=== PATIENT | male | born 1995 | race Hispanic/Latino ===

== ENCOUNTER 2018-11-27 14:38 | Emergency (ER) | payer OTHER ==
[~2018-11-27] VITALS: Ht 177.8 cm; Wt 97.8 kg
[2018-11-27 17:41] VITALS: BP 154/89
--- NOTE | 2018-11-27 18:30 | REPVR ---
PROCEDURE INFORMATION: Exam: US Left Breast Limited Exam date and time: 11/27/2018 5:11 PM Clinical history: 23 years old, male; Pain; Other: Swelling /redness; Prior surgery; Surgery date: Post-operative (0-2 days); Surgery type: Incision at lump area to be removed drained; Additional info: Tender swelling R/O abscess/hematoma , oked wAnkit Sarmiento to order TECHNIQUE: Imaging protocol: Limited ultrasound of Left breast with image documentation, including axilla when performed. COMPARISON: No relevant prior studies available. FINDINGS: Targeted ultrasound was performed of the left chest in the area of incision. Curvilinear echogenic structure noted approximately 1.6 cm below the skin surface is noted. Distal shadowing is present related to the echogenic structure which may represent sutures or a drain. The shadowing precludes delineation of the soft tissues posteriorly. No fluid or architectural distortion is noted within the surrounding soft tissues. No areas of abnormal vascularity are seen IMPRESSION: Curvilinear echogenic structure within the chest wall at the area of tenderness and edema. Distal shadowing associated with this structure precludes delineation of the posterior soft tissues. Focal abscess/fluid collection not excluded. No abnormality noted in the surrounding soft tissues. Electronically signed by: Argelia Escalante On 11/27/2018 18:29:46 PM
== END 2018-11-27 17:43 | disposition home or self-care (01) ==
LOC: M ED 14:38
DX: R22.2 Localized swelling, mass and lump, trunk (principal)